=== PATIENT | male | born 1995 | race Caucasian/White ===

== ENCOUNTER 2021-05-17 12:27 | Emergency (ER) | payer BC ==
[~2021-05-17] VITALS: Ht 182.9 cm; Wt 86.2 kg
[2021-05-17] MEDS ORDERED: DICLOFENAC SODI75 MG PO (13:54)
== END 2021-05-17 14:22 | disposition home or self-care (01) ==
LOC: ER 12:27
DX: M79.672 Pain in left foot (principal)